=== PATIENT | female | born 1965 | race Caucasian/White ===

== ENCOUNTER 2019-08-11 12:52 | Emergency (ER) | payer BC ==
[~2019-08-11] VITALS: Ht 163.8 cm; Wt 85.3 kg
--- NOTE | 2019-08-11 15:30 | NUR ---
PATH TO WELLNESS PROVIDER AT BEDSIDE
--- NOTE | 2019-08-11 16:04 | NUR ---
mental health still at bedside
[2019-08-11] MEDS ORDERED: HYDR50CA PO (16:56)
[2019-08-11] MEDS ORDERED: PRAZ1CAP5 PO (16:56)
[2019-08-11 17:11] VITALS: BP 131/98
== END 2019-08-11 17:12 | disposition home or self-care (01) ==
LOC: ER 12:53
DX: F32.9 Major depressive disorder, single episode, unspecified (principal); Z76.0 Encounter for issue of repeat prescription; Z88.1 Allergy status to other antibiotic agents
CPT/HCPCS: 99283